=== PATIENT | male | born 1995 | race Caucasian/White ===

== ENCOUNTER 2023-01-20 07:35 | Emergency (ER) | payer OTHER, SELFPAY ==
[2023-01-20] VITALS (15 sets, daily range): BP systolic 113–142; BP diastolic 72–89; PULSE 64–96; RESP 11–16; TEMP 36.4–36.5; O2SAT 94–99
--- NOTE | ~2023-01-20 | XR_ITS ---
XR chest 2V DATE: 01/20/2023 08:06 INDICATION: Upper left chest pain. Shortness of breath, cough, wheezing TECHNIQUE: PA and lateral views COMPARISON: None FINDINGS: Normal heart size. No hilar or mediastinal enlargement. No pulmonary infiltrate or consolid ation, pleural effusion or pulmonary vascular congestion or pneumothorax is detected. Included skelet al structures are unremarkable. IMPRESSION: Negative Reviewed, dictated and finalized at location A. IMPRESSION: Negative
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
--- NOTE | 2023-01-20 07:42 | ECG_ITS ---
Measurements Intervals [place] Rate: 74 P: 26 [place]: 121 QRS: 53 QRSD: 79 T: 29 QT: 382 QTc: 424 Interpretive Statements SINUS RHYTHM BASELINE WANDER- V3-V6 NORMAL ECG NO PREVIOUS ECG AVAILABLE FOR COMPARISON Electronically Signed On 01-20-2023 8:17:10 CDT by Luis Sorto D.O.
[2023-01-20 08:16] LABS: Hematocrit 50.3 % (40.0-54.0); Hemoglobin 17.4 g/dL (14.0-18.0); Mean Corpuscular HGB Conc 34.6 g/dL (32.0-36.0); Mean Corpuscular Hemoglobin 29.7 pg (27.0-31.0); Mean Platelet Volume 10.2 fl (8.7-11.0); Platelet Count Result 293 K/mm3 (150-420); Red Blood Count 5.85 M/mm3 (4.70-6.10); Red Cell Distribution Width 12.7 % (11.6-14.4); White Blood Count 9.6 K/mm3 (4.8-10.8)
[2023-01-20 08:34] LABS: Alanine Aminotransferase 51 U/L (16-63); Albumin Level 4.5 g/dL (3.4-5.0); Alkaline Phosphatase 105 U/L (46-116); Anion Gap 8 mmol/L (8-16); Aspartate Amino Transferase 20 U/L (15-37); Bilirubin,Total 0.3 mg/dL (0.00-1.00); Blood Urea Nitrogen 19 mg/dL (7-18); Calcium 9.2 mg/dL (8.5-10.1); Carbon Dioxide 29 mmol/L (21-32); Chloride 103 mmol/L (98-108); Estimated CRCL calculation 91 ml/min; Estimated Glomerular Filt Rate > 60; Glucose 123 mg/dL (70-99); Osmolality Calculated 293 mOsm/kg (285-295); Potassium 3.9 mmol/L (3.5-5.1); Sodium 140 mmol/L (136-145); Total Protein 8.5 g/dL (6.4-8.2); Troponin I 4.3 ng/L (0.00-60.4)
== END 2023-01-20 09:09 | disposition home or self-care (01) ==
LOC: CHSED 08:18
PROVIDERS: Emergency Provider Emergency Medicine; PCP Nurse Practitioner Family
DX: R07.89 Other chest pain (principal)
CPT/HCPCS: 36415; 71046; 80053; 84484; 85027; 93005; 99284

== ENCOUNTER 2024-09-30 13:42 | Emergency (ER) | payer SELFPAY ==
[2024-09-30] VITALS (7 sets, daily range): BP systolic 108–133; BP diastolic 68–83; PULSE 72–84; RESP 13–22; TEMP 36.3; O2SAT 93–99
--- NOTE | 2024-09-30 13:47 | ECG_ITS ---
Test Date: 2024-09-30 13:52:38 Measurements Intervals [place] Rate: 86 P: 47 [place]: 123 QRS: 59 QRSD: 80 T: 20 QT: 375 QTc: 449 Interpretive Statements SINUS RHYTHM WITH OCCASIONAL VENTRICULAR PREMATURE COMPLEXES NONSPECIFIC T-WAVE ABNORMALITY No previous ECG available for comparison Electronically Signed On 10-01-2024 10:43:00 CDT by Miguel Angel Simon M.D.
--- NOTE | 2024-09-30 13:49 | ED_ITS ---
HPI - Arrhythmia/Palpitations General Chief Complaint: Chest Pain Stated Complaint: RACING HEARTBEAT Time Seen by Provider: 09/30/24 13:49 Source: patient Mode of arrival: ambulatory Limitations: no limitations History of Present Illness HPI narrative: 29-year-old male with no significant past medical history presents to the ED with a 1 day history of -- palpitation. No chest pain. No nausea /vomiting. No lightheadedness. No shortness of breath. He has had prior episodes of palpitation. Nonsmoker. No history of drug use. MD complaint: palpitations Onset (ago): day(s) ( One day) Duration: constant Severity: mild Context: occurred during rest Associated symptoms: denies other symptoms Related Data Allergies Allergy/AdvReac Type Severity Reaction Status Date / Time No Known Allergies Allergy Verified 01/20/23 07:45 Review of Systems 2 Review of Systems: All systems reviewed & are unremarkable except as noted in HPI and below Constitutional: Constitutional: Reports as per HPI and Reports no additional constitutional complaints Eyes: Eyes: Reports as per HPI and Reports no additional eye complaints ENT: Reports system reviewed and no additional complaints, except as documented and Reports as per HPI Cardiovascular: Cardiovascular: Reports as per HPI and Reports no additional cardiovascular complaints Comments: palpitation Respiratory: Respiratory: Reports as per HPI and Reports no additional respiratory complaints Gastrointestinal: Gastrointestinal: Reports as per HPI and Reports no additional gastrointestinal complaints Genitourinary: Genitourinary: Reports no additional male genitourinary complaints and Reports as per HPI Musculoskeletal: Musculoskeletal: Reports no additional musculoskeletal complaints and Reports as per HPI Integumentary/Breasts: Skin/Breast: Reports system reviewed and no additional complaints, except as docu and Reports as per HPI Neurologic: Reports system reviewed and no additional complaints, except as documented and Reports as per HPI Psychiatric: Psychiatric: Reports no additional psychiatric complaints and Reports as per HPI Endocrine: Endocrine: Reports no additional endocrine complaints and Reports as per HPI Hematologic/Lymphatic: Hematologic/Lymphatic: Reports no additional hematologic/lymphatic complaints and Reports as per HPI Allergic/Immunologic: Allergic/Immunologic: Reports no additional allergic/immunologic complaints and Reports as per HPI PMFSH Past Medical History Medical History Anxiety Social History Social History Smoking status: Unknown if ever smoked Exam 2 Narrative: vitals are stable. Const: General: no acute distress Orientation/consciousness: patient oriented x3 Limitations: no limitations HENMT: Head: normal to inspection Ears: external ears normal F dhaval/Nose/Sinus: Normal external nose present Face and sinus: normal facial exam Mouth: Yes Normal oral and palatal mucosa present Throat: posterior oropharynx normal Eyes: Conjunctivae: conjunctivae normal Pupils: Equal, round and reactive pupils present EOM: EOMs intact bilaterally Direct Ophthalmoscopy: no photophobia Neck: Neck: normal visual inspection, no lymphadenopathy and no meningeal signs Chest: Chest palpation & inspection: normal inspection of the chest Resp: Effort & Inspection: normal respiratory effort Auscultation: clear to auscultation bilaterally Cardio: Rate: regular rate Rhythm: regular rhythm GI: GI Palp: Yes Soft to palpation Auscultation: normal bowel sounds O ther: No tenderness/rigidity / rebound. : General: Yes no CVA tenderness Back/Spine/Pelvis: Back: no CVA tenderness Skin: General skin exam: normal color Rashes: no rashes Wounds: no wounds Neuro: General: patient oriented x3, moves all extremities, no meningeal signs, no focal motor deficits and CN's II-XI intact bilaterally Cranial nerves: Yes Nystagmus not present Speech: normal speech Gait exam (Neuro): Normal gait present Extrem: General: normal to inspection and no clubbing, cyanosis or edema Psych: Mental Status: mental status grossly normal Affect: normal affect Attitude: cooperative Course Course Emergency Course: Anxiety/palpitation-- Monitor revealed frequent ventricular ectopics -- blood work is unremarkable including TSH. Will start the patient on metoprolol XL. will have the patient follow-up with manager front office for possible Holter monitoring Vital Signs Vital signs: Vital Signs Oxygen Delivery Room Air 09/30/24 13:42 Temperature 36.3 C L 09/30/24 13:43 Pulse Rate 76 09/30/24 13:43 Respiratory Rate 15 09/30/24 13:43 Blood Pressure 133/72 09/30/24 13:43 Pulse Oximetry 98 09/30/24 13:43 Oxygen Delivery Room Air 09/30/24 13:43 MDM - Arrhythmia/Palpitations MDM Narrative Medical decision making narrative: Anxiety palpitation Differential Diagnosis Differential diagnosis: Likely anxiety and artial fibrillation Medical Records Attestation: I reviewed the patient's medical records. Lab Data Attestation: I reviewed the patient's lab results. 09/30/24 14:12 09/30/24 14:12 Labs: Lab Results 09/30/24 Range/Units 14:12 WBC 9.7 (4.8-10.8) K/mm3 RBC 5.76 (4.70-6.10) M/mm3 Hgb 16.3 (14.0-18.0) g/dL Hct 49.4 (40.0-54.0) % MCV 85.8 (78.0-102.0) fL MCH 28.3 (27.0-31.0) pg MCHC 33.0 (32-36) g/dL RDW 13.2 (11.6-14.4) % Plt Count 300 (150-420) K/mm3 MPV 10.0 (8.7-11.0) fl Immature Gran % (Auto) 0.3 H (0.0-0.0) % Neut % (Auto) 64.8 (50.0-70.0) % Lymph % (Auto) 22.5 (18.0-42.0) % Ward % (Auto) 9.7 (2.0-11.0) % Eos % (Auto) 2.2 (1.0-6.0) % Baso % (Auto) 0.5 (0.0-1.0) % Lymph # (Auto) 2.18 (1.10-4.50) K/mm3 Ward # (Auto) 0.94 H (0.10-0.90) K/mm3 Eos # (Auto) 0.21 (0.02-0.50) K/mm3 Baso # (Auto) 0.05 (0.00-0.10) K/mm3 Abs Immat Gran (auto) 0.03 H (0.00-0.00) K/mm3 Absolute Neuts (auto) 6.29 (1.70-7.20) K/mm3 Absolute Nucleated RBC 0.00 (0.00-0.00) K/mm3 Nucleated RBC % 0.0 (0-0.0) % Sodium 140 (136-145) mmol/L Potassium 4.3 (3.5-5.1) mmol/L Chloride 103 (98-108) mmol/L Carbon Dioxide 31 (21-32) mmol/L Anion Gap 6 (4-12) mmol/L BUN 20 H (7-18) mg/dL Creatinine 1.20 (0.70-1.30) mg/dL Estim Creat Clear Calc 78 ml/min Estimated GFR > 60 (59 - ) Glucose 97 (70-99) mg/dL Calculated Osmolality 292 (285-295) mOsm/kg Calcium 9.7 (8.5-10.1) mg/dL Magnesium 2.1 (1.8-2.4) mg/dL Total Bilirubin 0.7 (0.00-1.00) mg/dL AST 20 (15-37) U/L ALT 48 (16-63) U/L Alkaline Phosphatase 85 (46-116) U/L Troponin I < 4.0 (0.00-60.4) ng/L Total Protein 8.2 (6.4-8.2) g/dL Albumin 4.2 (3.4-5.0) g/dL TSH 0.86 (0.36-3.74) uIU/mL ECG Data EKG #1: ECG completion date: 09/30/24 ECG completion time: 13:52 Interpretation: normal sinus rhythm with frequent ventricular ectopics. Normal axis. Nonspecific T-wave changes. No ST elevation. Discharge Plan Discharge Clinical Impression: Anxiety, Palpitation Patient Disposition: Home, Self-Care Condition: Stable Instructions: Antibiotic Form, Heart Palpitations (ED), Anxiety (ED) Patient Language: Uzbek Prescriptions: New metoprolol succinate [Toprol XL] 25 mg tablet extended release 24 hr 25 mg PO DAILY Qty: 30 0RF Follow-up/Referrals: UNKNOWN,DOCTOR [Non-Staff] - Time of Disposition: 14:54
[2024-09-30 14:16] LABS: Basophils Absolute Auto 0.05 K/mm3 (0.00-0.10); Basophils Percent Auto 0.5 % (0.0-1.0); Eosinophils Absolute Auto 0.21 K/mm3 (0.02-0.50); Eosinophils Percent Auto 2.2 % (1.0-6.0); Hematocrit 49.4 % (40.0-54.0); Hemoglobin 16.3 g/dL (14.0-18.0); Immature Granulocyte Absolute 0.03 K/mm3 (0.00-0.00); Immature Granulocyte Percent A 0.3 % (0.0-0.0); Lymphocytes Absolute Auto 2.18 K/mm3 (1.10-4.50); Lymphocytes Percent Auto 22.5 % (18.0-42.0); Mean Corpuscular Hemoglobin 28.3 pg (27.0-31.0); Mean Corpuscular Volume 85.8 fL (78.0-102.0); Monocytes Absolute Auto 0.94 K/mm3 (0.10-0.90); Monocytes Percent Auto 9.7 % (2.0-11.0); Neutrophils Absolute Auto 6.29 K/mm3 (1.70-7.20); Neutrophils Percent Auto 64.8 % (50.0-70.0); Platelet Count Result 300 K/mm3 (150-420); Red Blood Count 5.76 M/mm3 (4.70-6.10); Red Cell Distribution Width 13.2 % (11.6-14.4); White Blood Count 9.7 K/mm3 (4.8-10.8)
--- NOTE | 2024-09-30 14:20 | PC.NURSE ---
PT IS SITTING UP ON STRETCHER IN EXAM ROOM AWAITING RESULTS AT THIS TIME. PT HAD INQUIRED ABOUT POSSIBLE ANXIETY MEDICATION TO ERP. NO ORDERS AT THIS TIME. PT DENIES ANY NEEDS OR COMPLAINTS. WILL CONTINUE TO MONITOR.
[2024-09-30 14:40] LABS: Alanine Aminotransferase 48 U/L (16-63); Albumin Level 4.2 g/dL (3.4-5.0); Alkaline Phosphatase 85 U/L (46-116); Anion Gap 6 mmol/L (4-12); Aspartate Amino Transferase 20 U/L (15-37); Bilirubin,Total 0.7 mg/dL (0.00-1.00); Blood Urea Nitrogen 20 mg/dL (7-18); Calcium 9.7 mg/dL (8.5-10.1); Carbon Dioxide 31 mmol/L (21-32); Chloride 103 mmol/L (98-108); Estimated CRCL calculation 78 ml/min; Estimated Glomerular Filt Rate > 60; Glucose 97 mg/dL (70-99); Magnesium 2.1 mg/dL (1.8-2.4); Osmolality Calculated 292 mOsm/kg (285-295); Potassium 4.3 mmol/L (3.5-5.1); Sodium 140 mmol/L (136-145); Thyroid Stimulating Hormone 0.86 uIU/mL (0.36-3.74); Total Protein 8.2 g/dL (6.4-8.2); Troponin I < 4.0 ng/L (0.00-60.4)
--- OUTSIDE RECORDS SUMMARY | 2024-09-30 14:49 | XMS_ITS | Clinical Summary ---
Author Organization [facility] Address [facility] [place] [address] Care Team Providers Care Vocational Rehabilitation Technician Name Role Phone Fred Arguelles MD Primary Care Provider [phone] Allergies No known active allergies Medications No known medications Active Problems No known active problems Social History Tobacco Use Types Packs/Day Years Used Date Smoking Tobacco: Never Smokeless Tobacco: Never Alcohol Use Standard Drinks/Week Comments No 0 (1 standard drink = 0.6 oz pur e alcohol) AUDIT-C Answer Date Recorded Frequency of Alcohol Consumption Never 12/18/2018 Average Number of Drinks Not on file 019 Frequency of Binge Drinking Not on file 12/06 Sex and Gender Information Value Date Recorded Sex Assigned at Not on file Legal Sex Male 4:52 PM CDT Gender Identity Not on file Sexual Orientation Not on file Last Filed Vital Signs Vital Sign Reading Time Taken Comments Blood Pressure 127/79 07/01/2022 12:50 PM MAKE UP ARRANGER Pulse 121 07/01/2022 10:59 AM MAKE UP ARRANGER Temperature 38.6 C (101.4 F) 07/01/2022 10:59 AM MAKE UP ARRANGER Respiratory Rate 17 07/01/2022 10:59 AM MAKE UP ARRANGER Oxygen Saturation 96% 07/01/2022 12:50 PM MAKE UP ARRANGER Inhaled Oxygen Concentration - - Weight 71.7 kg (158 lb) 07/01/2022 10:59 AM MAKE UP ARRANGER Height 165.1 cm (5' 5 ) 07/01/2022 10:59 AM MAKE UP ARRANGER Body Mass Index 26.29 07/01/2022 10:59 AM MAKE UP ARRANGER Plan of Treatment Health Maintenance Due Date Last Done Comments Annual Physical 1997 Hepatitis C 2012 DTaP, Tdap and Td Vaccines ( 1 - Tdap) 2013 Hepatitis B Vaccines (1 of 3 - 19+ 3-dose series) 2013 COVID-19 Vaccine (2023-2 5 season) 2024 Influenza Adult (#1) 2024 HPV Vaccines Aged Out No longer eligi ble based on patient's age to complete this topic Meningococcal B Vaccine Aged Out No l onger eligible based on patient's age to complete this topic Meningococcal Vaccine Aged Out No theresa shaka eligible based on patient's age to complete this topic Pneumococcal Vaccine: Pediat rics (0 to 5 Years) and At-Risk Patients (6 to 64 Years) Aged Out No longer eligible b ased on patient's age to complete this topic RSV Immunizations Under 20 Months Aged Out No longer eligible based on patient's age to complete this topic Care Teams Vocational Rehabilitation Technician Relationship Specialty Start Date End Date Fred Arguelles MD [address] [place] [phone] PCP - General FAMILY PRACTICE 12/18/18
--- OUTSIDE RECORDS SUMMARY | 2024-09-30 14:49 | XMS_ITS | Encounter Summary ---
Author Organization [facility] Address [facility] [place] [address] Care Team Providers Care Warehouse Order Filler Name Role Phone Fred Arguelles MD Primary Care Provider Encounter Details Date Type Department Care Team (Late st Contact Info) Description 12/13/2018 Abstract [facility] CONVERSION [address] [place] [address] , Generic Conversion, Social History Tobacco Use Types Packs/Day Years Used Date Smoking Tobacco: Never Assessed Sex and Gender Information Value Date Recorded Sex Assigned at Not on file Legal Sex Male 4:52 PM CDT Gender Identity Not on file Sexual Orientation Not on file documented as of this encounter Plan of Treatment Not on file documented as of this encounter Visit Diagnoses Not on filedocumented in this encounter Additional Health Concerns Infection Onset Date Last Indicated Resolved Time COVID-19 Rule Out 07/01/2022 07/01/2022 07/01/2022 11:41 AM TUBE INSPECTOR documented as of this encounter Care Teams Warehouse Order Filler Relationship Specialty Start Date End Date Fred Arguelles MD [address] [place] [phone] PCP - General FAMILY PRACTICE 12/18/18 documented as of this encounter
--- NOTE | 2024-09-30 15:22 | PC.NURSE ---
DR SIMPSON HAD SPOKEN WITH DR ZHAO'S OFFICE TO OBTAIN APPOINTMENT FOR PT. OFFICE ADVISED CALLER TO REACH OUT TO OBTAIN APPOINTMENT, INFORMATION WAS PROVIDED.
--- OUTSIDE RECORDS SUMMARY | 2024-09-30 15:38 | XMS_ITS | Encounter Summary ---
Author Organization [facility] Address [facility] [place] [address] Care Team Providers Care Homemaking Rehabilitation Consultant Name Role Phone Fred Arguelles MD Primary Care Provider [phone] Encounter Details Date Type Department Care Team (Late st Contact Info) Description 12/13/2018 Abstract [facility] CONVERSION [address] [place] [address] , Generic Conversion, Social History Tobacco Use [...] Rule Out 07/01/2022 07/01/2022 07/01/2022 11:41 AM MANAGEMENT INFORMATION SYSTEMS DIRECTOR documented as of this encounter Care Teams Homemaking Rehabilitation Consultant Relationship Specialty Start Date End Date Fred Arguelles MD [address] [place] [phone] PCP - General FAMILY PRACTICE 12/18/18 documented as of this encounter
--- OUTSIDE RECORDS SUMMARY | 2024-09-30 15:38 | XMS_ITS | Clinical Summary ---
Author Organization [facility] Address [facility] [place] [address] Care Team Providers Care File Clerk Name Role Phone Fred Arguelles MD Primary Care Provider [phone] Allergies No known active allergies Medications No [...] Comments Blood Pressure 127/79 07/01/2022 12:50 PM CAMERA MACHINIST Pulse 121 07/01/2022 10:59 AM CAMERA MACHINIST Temperature 38.6 C (101.4 F) 07/01/2022 10:59 AM CAMERA MACHINIST Respiratory Rate 17 07/01/2022 10:59 AM CAMERA MACHINIST Oxygen Saturation 96% 07/01/2022 12:50 PM CAMERA MACHINIST Inhaled Oxygen Concentration - - Weight 71.7 kg (158 lb) 07/01/2022 10:59 AM CAMERA MACHINIST Height 165.1 cm (5' 5 ) 07/01/2022 10:59 AM CAMERA MACHINIST Body Mass Index 26.29 07/01/2022 10:59 AM CAMERA MACHINIST Plan of Treatment Health Maintenance Due Date [...] age to complete this topic Care Teams File Clerk Relationship Specialty Start Date End Date Fred Arguelles MD [address] [place] [phone] PCP - General FAMILY PRACTICE 12/18/18
== END 2024-09-30 15:15 | disposition home or self-care (01) ==
PROVIDERS: Emergency Provider Internal Medicine Critical Care Medicine
DX: F41.9 Anxiety disorder, unspecified (principal); R00.2 Palpitations
CPT/HCPCS: 36415; 80053; 83735; 84443; 84484; 85025; 93005; 99284